=== PATIENT | male | born 1955 | race Caucasian/White ===

== ENCOUNTER → 2017-01-12 | Outpatient (CLI) | payer BC ==
[~2017-01-12] MED LIST: BARIUM SUSPENSION 2.1% (VANILLA SILQ) 450 ML PO ONE; BUPR-168 PO; CATHETER FLUSH 10 ML SYR IV PRN; IOHEXOL 350 MG/ML 100 ML (OMNIPAQUE 350) VIAL IV ONE; METO50TA2 PO; MULT-35 PO; NS 100 ML (IVPB) BAG IV ONE; SIMV20TA3 PO; TAMS0.4C2 PO
--- NOTE | 2017-01-12 12:03 | Diagnostic Imaging Report ---
PROCEDURE: CT abdomen and pelvis with contrast. TECHNIQUE: Multiple contiguous axial images were obtained through the abdomen and pelvis after administration of intravenous contrast. INDICATION: History of prostate cancer. COMPARISON: 06/18/2006 FINDINGS: Included portions of the lung bases are clear. CT ABDOMEN: The kidneys, adrenal glands, spleen, and pancreas have a normal CT appearance. Cysts are noted scattered throughout the liver. Otherwise, liver is unremarkable as well. Small bowel loops are nondistended. Normal appendix is identified. There is no loculated fluid collection, free fluid, nor free air within the abdomen. No abnormal mesenteric or retroperitoneal adenopathy is seen. There is some mild scattered calcified aortic and arterial atherosclerosis. Fat-containing periumbilical hernia is noted. Ostium measures approximately 2.3 cm. Bony structures show no acute abnormalities. CT PELVIS: Urinary bladder is grossly unremarkable. There is no loculated fluid collection, free fluid, nor free air within the pelvis. No abnormal lymph nodes are seen. Bilateral inguinal hernias are identified. Portion of the small bowel is contained on the right. There is however no evidence of underlying obstruction or strangulation. Osseous structures show no acute abnormalities. IMPRESSION: 1. No evidence of metastatic or malignant disease within the abdomen or pelvis. 2. Fat-containing periumbilical hernia. 3. Bilateral inguinal hernias. Again, portion of small bowel is contained on the right. There is no evidence of strangulation or obstruction. Dictated by: Dictated on workstation # [id number]
--- NOTE | 2017-01-12 15:48 | Diagnostic Imaging Report ---
INDICATION: New diagnosis of prostate cancer. Asymptomatic. TECHNIQUE: The patient was administered 26.90 mCi technetium 99m MDP. Anterior and posterior whole-body planar images are obtained. CORRELATION STUDY: None FINDINGS: There is generally unremarkable distribution of radiotracer throughout the visualized axial and appendicular skeleton. There does appear to be perhaps mild degenerative changes at the partially visualized wrist as well as the feet and ankles. Also mild asymmetric degenerative uptake suggested about the inferior cervical spine on the right and lower lumbar spine on the left. No definitive areas of abnormal uptake to suggest the presence of osseous metastatic disease. IMPRESSION: 1. Negative appearing baseline bone scan. Dictated by: Dictated on workstation # [id number]
== END ==
LOC: CARD 10:41
PROVIDERS: ATTEND Urology
DX: C61 Malignant neoplasm of prostate (principal)
CPT/HCPCS: 74177; 78306

== ENCOUNTER 2017-03-15 03:56 | Emergency (ER) | payer BC ==
[~2017-03-15] VITALS: Ht 172.7 cm; Wt 79.4 kg
--- OUTSIDE RECORDS SUMMARY | 2017-03-15 04:02 | XMS REPORT | Continuity of Care Document ---
Author Author [employer] Organization [facility] Address Unknown Phone Unavailable Care Team Providers Care Project Asst Name Role Phone [employer] Unavailable Unavailable Problems Medications Allergies, Adverse Reactions, Alerts Immunizations Results Vital Signs Encounters Procedures Plan of Care Social History Assessment and Plan Family History Value Date Source Advance Directives Order Name Results Value Date Source
--- NOTE | 2017-03-15 04:19 | ED GU-Female ---
General Chief Complaint: Catheter/Drain/Tube Problems Stated Complaint: CATH BAG BROKE Nursing Triage Note: pt reports there is a hole in the bottom of his catheter bag. catheter is draining without difficulty. Nursing Sepsis Screen: No Definite Risk Source: patient History of Present Illness Time seen by provider: 04:07 Initial Comments PT HAD PROSTATECTOMY 2 WEEKS AGO IN [place], AND HAS HAD SAME PALUMBO CATHETER IN PLACE SINCE THEN. AROUND 2230 LAST PM/EARLIER THIS EVENING, THE BAG ITSELF BEGAN TO LEAK--BOTTOM PORTION OF BAG APPEARS TO HAVE A HOLE IN IT. PALUMBO ITSELF IS WORKING FINE AND DRAINING WELL--NO LEAKAGE AROUND THE CATHETER ITSELF NO ABDOMINAL PAIN NO FEVER PT WAS SEEN BY DR. WEN ON Sunday03/12/17 AND WAS GIVEN A MEDICATION TO HELP WITH BLADDER SPASMS, WHICH HAS HELPED THAT PROBLEM PT IS TO HAVE AN XRAY TODAY, AND IS TO HAVE FOLLOW UP EXAM WITH DR. WEN THIS COMING Sunday03/19/17 WITH POSSIBLE REMOVAL OF CATHETER. PT WOULD LIKE TO HAVE BAG ITSELF REPLACED. Allergies and Home Medications Allergies Coded Allergies: No Known Drug Allergies (Unverified , 01/27/16) Home Medications Bupropion HCl 75 Mg Tablet, 75 MG PO DAILY, (Reported) Metoprolol Tartrate 50 Mg Tablet, 50 MG PO BID, (Reported) Multivitamin 1 Each Tablet, 1 EACH PO DAILY, (Reported) Simvastatin 20 Mg Tablet, 20 MG PO DAILY, (Reported) Tamsulosin HCl 0.4 Mg Cap.er.24h, 0.4 MG PO DAILY, (Reported) Constitutional: no symptoms reported Gastrointestinal: no symptoms reported Genitourinary: see HPI Musculoskeletal: no symptoms reported Skin: no symptoms reported Past Kabvixz-Eclnfi-Iybirs Hx Patient Social History Recent Foreign Travel: No Contact w/Someone Who Travel: No Recent Infectious Disease Expo: No Recent Hopitalizations: No Seasonal Allergies Seasonal Allergies: No Surgeries History of Surgeries: Yes Surgeries: Prostatectomy Respiratory History of Respiratory Disorde: No Cardiovascular History of Cardiac Disorders: Yes Cardiac Disorders: High Cholesterol, Hypotension Neurological History of Neurological Disord: No Reproductive System Hx Reproductive Disorders: No Sexually Transmitted Disease: No HIV/AIDS: No Genitourinary History of Genitourinary Disor: Yes (PROSTATE CANCER) Genitourinary Disorders: Prostate Problems, Kidney Stones Musculoskeletal History of Musculoskeletal Dis: No Endocrine History of Endocrine Disorders: No HEENT History of HEENT Disorders: Yes (GLASSES) Loss of Vision: Bilateral Hearing Impairment: Hard of Hearing Cancer History of Cancer: Yes Cancer: Prostate Did You Recieve Any Treatments: Yes Type of Tx Receive: Surgical Intervention Psychosocial History of Psychiatric Problem: No Integumentary History of Skin or Integumenta: No Blood Transfusions Adverse Reaction to a Blood Tr: No (N/A) Physical Exam Vital Signs Vital Sign - Last 12Hours 03/15/17 04:10 Temp 95.8 Pulse 77 Resp 16 B/P (MAP) 142/99 (113) Capillary Refill : Less Than 3 Seconds General Appearance: WD/WN, no apparent distress Gastrointestinal: non tender, soft Genital/Rectal: other (PALUMBO CATHETER DRAINING WELL WITH NO LEAKING AROUND CATHETER ITSELF. COLLECTION BAG HAS A HOLE IN IT) Neurologic/Psychiatric: no motor/sensory deficits, alert, normal mood/affect, oriented x 3 Skin: normal color, warm/dry Progress/Results/Core Measures Suspected Sepsis Recent Fever Within 48 Hours: No Infection Criteria Present: None New/Unexplained Altered Menta: No Sepsis Screen: No Definite Risk Sepsis Diagnosis: SIRS Temperature:95.8 Pulse: 77 Respiratory Rate: 16 Blood Pressure 142 /99 Mean: 113 Results/Orders Vital Signs/I&O Vital Sign - Last 12Hours 03/15/17 04:10 Temp 95.8 Pulse 77 Resp 16 B/P (MAP) 142/99 (113) Capillary Refill : Less Than 3 Seconds Blood Pressure Mean: 113 Progress Note : Progress Note CATHETER ITSELF LEFT IN PLACE, COLLECTION BAG REPLACED. Departure Impression Impression: Primary Impression: Palumbo catheter problem Disposition: 01 HOME, SELF-CARE Condition: Stable Departure-Patient Inst. Referrals: NANDO FARIAS MD (PCP/Family) Primary Care Physician Patient Instructions: How to Care for Your Palumbo Catheter, Male Add. Discharge Instructions: FOLLOW UP WITH DR. WEN SCHEDULED All discharge instructions reviewed with patient and/or family. Voiced understanding. CAIN URIAS DO Mar 15, 2017 04:19
[2017-03-15 04:30] VITALS: BP 142/99
== END 2017-03-15 04:42 | disposition home or self-care (01) ==
LOC: EDUNIT# 03:56 → ER 03:58
DX: T83.038A Leakage of other urinary catheter, initial encounter (principal); E78.00 Pure hypercholesterolemia, unspecified; Z85.46 Personal history of malignant neoplasm of prostate; Z87.442 Personal history of urinary calculi; Z90.79 Acquired absence of other genital organ(s); Z96.0 Presence of urogenital implants
CPT/HCPCS: 99281

== ENCOUNTER → 2017-03-15 | Outpatient (CLI) | payer BC ==
[~2017-03-15] MED LIST changes: -BARIUM SUSPENSION 2.1% (VANILLA SILQ) 450 ML PO ONE; -CATHETER FLUSH 10 ML SYR IV PRN; -IOHEXOL 350 MG/ML 100 ML (OMNIPAQUE 350) VIAL IV ONE; +METO50TA15 PO; -METO50TA2 PO; -NS 100 ML (IVPB) BAG IV ONE
--- NOTE | 2017-03-15 16:41 | Diagnostic Imaging Report ---
EXAM: CT cystogram INDICATION: Prostate cancer. Contrast is administered into the urinary bladder through the Brar catheter in place. FINDINGS: The urinary bladder demonstrates wall thickening with multiple diverticula that are predominantly intramural but bilateral to small diverticular outpouching into the lateral soft tissues are seen up to 1.8 cm on the left and 1cm on the right side. This is presumably related to chronic obstructive changes. There is a Brar catheter in place. Soft tissue fullness around the Brar catheter is probably related to the urethra with presumed prostatectomy performed. There is no extravasation of contrast seen from the bladder. There is no reflux to the ureters. Scattered diverticula are seen in the sigmoid colon with no diverticulitis. The osseous structures appear to demonstrate degenerative changes in the lower lumbar spine facet joints and in the SI joints more on the right side. IMPRESSION: There is urinary bladder wall thickening with diverticula seen probably sequela of long-standing obstructive changes. Dictated by: Dictated on workstation # [id number]
== END ==
LOC: RAD 13:58
PROVIDERS: ATTEND Urology
DX: N32.89 Other specified disorders of bladder (principal); N32.3 Diverticulum of bladder; C61 Malignant neoplasm of prostate
CPT/HCPCS: 72192

== ENCOUNTER 2021-03-09 06:42 | Outpatient (CLI) | payer MEDICARE ==
[~2021-03-09] VITALS: Ht 172.7 cm; Wt 78.3 kg
[~2021-03-09 06:42] MED LIST changes: +SIMV20TA26 PO; -SIMV20TA3 PO
[2021-03-11] MEDS ORDERED: MULT-974 PO (09:58)
[2021-03-11] MEDS ORDERED: OMEG1CAP24 PO (09:58)
== END 2021-03-11 12:16 | disposition home or self-care (01) ==
LOC: PREOP 06:42
PROVIDERS: ATTEND Surgery
DX: Z01.818 Encounter for other preprocedural examination (principal)

== ENCOUNTER 2021-03-16 10:01 | Day surgery (SDC) | payer MEDICARE ==
[2021-03-16] VITALS (14 sets, daily range): BP systolic 111–156; BP diastolic 56–96
[~2021-03-16] VITALS: Ht 172.7 cm; Wt 78.3 kg
[~2021-03-16 10:01] MED LIST changes: +MULT-974 PO; +OMEG1CAP24 PO
[2021-03-16] MEDS ORDERED: NS IV 500 ML 500 ML ONE (10:22)
[2021-03-16] MEDS ORDERED: fentaNYL INJ 100 MCG/2 ML AMP IVP ONE (10:30)
[2021-03-16] MEDS ORDERED: LIDOCAINE JELLY 2% 6 ML SYRINGE MM PRN (10:30)
[2021-03-16] MEDS ORDERED: NS IV 500 ML 500 ML IV PRN (10:30)
[2021-03-16] MEDS ORDERED: MIDAZOLAM 5 MG/5 ML (VERSED) VIAL IV ONE (10:30)
[2021-03-16] MEDS ORDERED: fentaNYL INJ 100 MCG/2 ML AMP ONE (10:41)
[2021-03-16] MEDS ORDERED: MIDAZOLAM 5 MG/5 ML (VERSED) VIAL ONE (10:41)
[2021-03-16] MEDS ORDERED: LIDOCAINE JELLY 2% 6 ML SYRINGE ONE (10:42)
--- NOTE | 2021-03-16 11:03 | Conscious Sedation/ASA ---
Conscious Sedation Pre-Proced Time 10:30 ASA Score 2 For ASA 3 and 4: Consider anesthesia and medical clearance. Also, for patients with a history of failed moderate sedation consider anesthesia. Airway Lungs Heart ASA score ASA 1: a normal healthy patient ASA 2: a patient with a mild systemic disease (mid diabetes, controlled hypertension, obesity ASA 3: a patient with a severe systemic disease that limits activity (angina, COPD, prior Myocardial infarction) ASA 4: a patient with an incapacitating disease that is a constant threat to life (CHF, renal failure) ASA 5: a moribund patient not expected to survive 24 hrs. (ruptured aneurysm) ASA 6: a declared brain- patient whose organs are being harvested. For emergent operations, add the letter E after the classification Mallampati Classification Grade 2 Sedation Plan Analgesia, Amnesia, Plan communicated to team members, Discussed options with patient/fam, Discussed risks with patient/fam The patient is an appropriate candidate to undergo the planned procedure, sedation, and anesthesia. The patient immediately re-assessed prior to indication. KIANNA BRAVO MD Mar 16, 2021 11:02
--- NOTE | 2021-03-16 11:04 | Progress Note-Pre Operative ---
Pre-Operative Progress Note H&P Reviewed The H&P was reviewed, patient examined and no changes noted. Date Seen by Provider: Mar 16, 2021 Time Seen by Provider: 10:30 Date H&P Reviewed: Mar 16, 2021 Time H&P Reviewed: 10:30 Pre-Operative Diagnosis: screening colo, family hx KIANNA BRAVO MD Mar 16, 2021 11:04
--- NOTE | 2021-03-16 11:05 | Discharge Inst-Surgical ---
D/C Lap Instructions-[facility] Follow Up Activity as tolerated High Fiber Diet 25g or more per day Avoid Alcohol, Caffeine, Spicy [place] and Acid foods. Drink 64 fluid oz or more of fluids per day. Symptoms to Report: Fever over 101 degree F, Nausea/Vomiting If any problems/questions: Contact your physician or go to Emergency Room KIANNA BRAVO MD Mar 16, 2021 11:05
[2021-03-16] MEDS ORDERED: ONDANSETRON 4 MG (ZOFRAN) ORAL DISSOLVE TAB PO PRN (11:15)
[2021-03-16] MEDS ORDERED: ONDANSETRON 4 MG/2 ML (SDV) Z0FRAN IVP PRN (11:15)
--- NOTE | 2021-03-16 11:40 | Progress Note-Post Operative ---
Post-Operative Progess Note Surgeon (s)/Refractory Worker (s) Surgeon KIANNA BRAVO MD Refractory Worker: none Pre-Operative Diagnosis screening colo, family hx Post-Operative Diagnosis normal colon and rectum Procedure & Operative Findings Date of Procedure 03/16/21 Procedure Performed/Findings colonoscopy Anesthesia Type cs Estimated Blood Loss Estimated blood loss (mL): minimal Specimens/Packing Specimens Removed none KIANNA BRAVO MD Mar 16, 2021 11:40
--- NOTE | 2021-03-16 17:48 | OPERATIVE REPORT ---
DATE OF SERVICE: 03/16/2021 ATTENDING PRIMARY CARE PHYSICIAN: Grayson Johnson MD PREOPERATIVE DIAGNOSIS: Screening colonoscopy with a family history of colon cancer. POSTOPERATIVE DIAGNOSIS: Normal colon and rectum. PROCEDURE: Colonoscopy. SURGEON: Kianna Bravo MD ANESTHESIA: Conscious sedation. ESTIMATED BLOOD LOSS: Minimal. FINDINGS: Normal colon and rectum. DISPOSITION: The patient tolerated the procedure well. INDICATIONS: The patient is a 66-year-old male in need of a screening colonoscopy. His last colonoscopy was approximately 10 years ago and he believes this to be normal. He does not report any major issues with diarrhea nor constipation as well as no red blood per rectum nor any dark tarry stools. He does have a family history of colon cancer with his father being diagnosed with the disease at age 74. DESCRIPTION OF PROCEDURE: The patient was brought to the endoscopy suite, laid in left lateral decubitus position. After adequate IV pain and sedative medications and conscious sedation anesthesia, digital rectal examination was performed. No significant hemorrhoids identified. Normal sphincter tone was felt and there were no palpable masses. Prostate gland was palpable and appeared normal. The endoscope was then intubated and anus and rectum gently insufflated. The endoscope was then advanced through the valves of Morel of the rectum with no polyps or any neoplasms identified. Through the sigmoid colon, no diverticulosis identified. The endoscope was then advanced and remainder of the descending, transverse and ascending colon to the cecum, which were normal. No polyps or any neoplasms identified throughout the colon or rectum. The endoscope was slowly withdrawn while taking a second look and suctioning of residual air with no additional findings. The patient tolerated the procedure well. We will recommend the necessary lifestyle and dietary accommodation including a high fiber diet with incorporation of a fiber supplement, which should equal or exceed 30 grams daily to promote soft stools on a daily basis. He does have a first-degree family history of colon cancer and the recommendation would be to proceed with screening colonoscopies every 5 years, which we will recommend. Job ID: [id number] DocumentID: [id number] Dictated Date: 03/16/2021 11:26:50 Smoking Pipe Coater Date: 03/16/2021 17:47:54 Dictated By: KIANNA BRAVO MD
== END 2021-03-16 13:00 | disposition home or self-care (01) ==
LOC: ENDO 10:01
PROVIDERS: ATTEND Surgery
DX: Z12.11 Encounter for screening for malignant neoplasm of colon (principal); Z80.0 Family history of malignant neoplasm of digestive organs; I10 Essential (primary) hypertension; E78.00 Pure hypercholesterolemia, unspecified; Z79.899 Other long term (current) drug therapy; Z85.46 Personal history of malignant neoplasm of prostate; Z87.891 Personal history of nicotine dependence

== ENCOUNTER → 2021-08-25 | Outpatient (CLI) | payer MEDICARE ==
[2021-08-25 10:15] LABS: BASOPHILS % (AUTO) 1 % (0-10); EOSINOPHILS # (AUTO) 0.2 10^3/uL (0.0-0.3); EOSINOPHILS % (AUTO) 3 % (0-10); HEMATOCRIT 46 % (40-54); HEMOGLOBIN 16.1 g/dL (13.3-17.7); LYMPHOCYTES # (AUTO) 2.2 10^3/uL (1.0-4.0); LYMPHOCYTES % (AUTO) 37 % (12-44); MEAN CORPUSCULAR HEMOGLOBIN 30 pg (25-34); MEAN CORPUSCULAR HGB CONC 35 g/dL (32-36); MEAN CORPUSCULAR VOLUME 87 fL (80-99); MEAN PLATELET VOLUME 9.5 fL (9.0-12.2); MONOCYTES # (AUTO) 0.4 10^3/uL (0.0-1.0); MONOCYTES % (AUTO) 7 % (0-12); NEUTROPHILS # (AUTO) 3.1 10^3/uL (1.8-7.8); NEUTROPHILS % (AUTO) 53 % (42-75); PLATELET COUNT 261 10^3/uL (130-400); WHITE BLOOD COUNT 5.9 10^3/uL (4.3-11.0)
[2021-08-25 10:20] LABS: ALBUMIN 4.3 GM/DL (3.2-4.5); POTASSIUM 4.7 MMOL/L (3.6-5.0)
[2021-08-25 10:23] LABS: TOTAL PROTEIN 7.3 GM/DL (6.4-8.2)
[2021-08-25 10:24] LABS: BILIRUBIN,TOTAL 0.6 MG/DL (0.1-1.0)
[2021-08-25 10:26] LABS: CREATININE SERUM 1.07 MG/DL (0.60-1.30)
== END ==
LOC: LAB 09:53
DX: E11.9 Type 2 diabetes mellitus without complications (principal); R53.83 Other fatigue; E78.2 Mixed hyperlipidemia
CPT/HCPCS: 36415; 80053; 80061; 83036; 84443; 85025